=== PATIENT | male | born 1950 | race Caucasian/White ===

== ENCOUNTER → 2016-10-18 | Outpatient (CLI) | payer OTHER, MEDICARE ==
--- NOTE | 2016-10-18 08:24 | RAD ---
Exam: PA and lateral chest radiograph History: Chest congestion, shortness of air. Worsening over last 2 days. Comparison: None. Findings: Cardiomediastinal silhouette is within normal limits for size. Bilateral lung cook are free of focal infiltrate. No pleural effusion is seen. Impression: No acute cardiopulmonary process.
== END | disposition home or self-care (01) ==
LOC: DXRADRC 07:56
PROVIDERS: ATTEND Physician Assistant Medical
DX: R05 Cough (principal); R09.89 Other specified symptoms and signs involving the circulatory and respiratory systems
CPT/HCPCS: 71020

== ENCOUNTER 2019-10-18 21:17 | Emergency (ER) | payer MEDICARE, OTHER ==
[~2019-10-18] VITALS: Ht 167.6 cm; Wt 95.4 kg
[2019-10-18 21:24] VITALS: BP 172/68
--- NOTE | 2019-10-18 21:27 | PHYS DOC ---
Past History Past Medical History: Prostatitis General Adult EDM: Chief Complaint: URINARY FREQUENCY HPI: HPI: "..I got prostate cancer or it is enlarged.. I was at the Urology .. and they did a procedure... and I have not been able to pee since they did the procedure ..."" They said go to the Emergency room..."..and have you guys to just put a cath and drain my bladder..." Patient is a 69 year old male who presents with complaints of dysuria, and distended bladder. Patient had a UroLift procedure approximately 830 this morning. Procedure was by Dr.Angst- [facility]. Patient denies has not been able to urinate since the procedure. Patient's bladder is almost fully distended. Having significant discomfort. Patient is on antibiotics post UroLift procedure. Patient reportedly had prostate biopsies in July with minimal abnormal cells. Patient denies any history of recent travel outside [facility]. Patient denies any specific ill contacts. Patient denies any immune suppression. Patient placement of a Laws catheter with a leg bag. Initial straight cath resulted in more than significant 750 cc of urine with immediate relief of his bladder pain. Review of Systems: Review of Systems: Constitutional: Denies fever or chills Eyes: Denies change in visual acuity HENT: Denies nasal congestion or sore throat Respiratory: Denies cough or shortness of breath Cardiovascular: Denies chest pain or edema GI: Complains of bladder distention abdominal pain, nausea,. Denies vomiting, bloody stools or diarrhea : Complains of urinary retention and dysuria Musculoskeletal: Denies back pain or joint pain Integument: Denies rash Neurologic: Denies headache, focal weakness or sensory changes Endocrine: Denies polyuria or polydipsia Lymphatic: Denies swollen glands Psychiatric: Denies depression or anxiety Heart Score: Risk Factors: Risk Factors: DM, Current or recent (<one month) smoker, HTN, HLP, family history of CAD, obesity. Risk Scores: Score 0 - 3: 2.5% MACE over next 6 weeks - Discharge Home Score 4 - 6: 20.3% MACE over next 6 weeks - Admit for Clinical Observation Score 7 - 10: 72.7% MACE over next 6 weeks - Early Invasive Strategies Family History: Family History: Noncontributory to presentation Current Medications: Current Meds: See nursing for home meds Allergies: Allergies: Allergies Coded Allergies Type Severity Reaction Last Updated Verified codeine Allergy Intermediate 10/13/13 Yes Physical Exam: PE: Constitutional: inacute distress, non-toxic appearance. [] HENT: Normocephalic, atraumatic, bilateral external ears normal, oropharynx moist, no oral exudates, nose normal. [] Eyes: PERRLA, EOMI, conjunctiva normal, no discharge. [] Neck: Normal range of motion, no tenderness, supple, no stridor. [] Cardiovascular: Tachycardia heart rate regular rhythm, no murmur [] Lungs & Thorax: Bilateral breath sounds equal at apex auscultation [] Abdomen: Bowel sounds decreased , soft, bladder tenderness and distention, no masses, no pulsatile masses. [] Skin: Warm, dry, no erythema, no rash. [] Back: No tenderness, no CVA tenderness. [] Extremities: No tenderness, no cyanosis, no clubbing, ROM intact, no edema. [] Neurologic: Alert and oriented X 3, normal motor function, normal sensory function, no focal deficits noted. [] Psychologic: Affect anxious, judgement normal, mood normal. [] EKG: EKG: [] Radiology/Procedures: Radiology/Procedures: [] Course & Med Decision Making: Course & Med Decision Making Pertinent Labs and Imaging studies reviewed. (See chart for details) Patient elected to only have straight cath. Laws removed after approximately thousand cc out. Urine appeared to have no clots with minimal bloody discoloration.. Patient take meds as restricted. Patient to follow-up with urology as directed. Patient return if any concerns. Impression: 1. Acute urinary retention 2. History of UroLift procedure this morning at 0830 hr.s [] Dragon Disclaimer: Dragon Disclaimer: This electronic medical record was generated, in whole or in part, using a voice recognition dictation system. Departure Departure: Disposition: 01 HOME/RESIDENCE PRIOR TO ADM Condition: STABLE Referrals: JONATHON GIL (PCP) [place] Disclaimer This chart was dictated in whole or in part using Voice Recognition software in a busy, high-work load, and often noisy Emergency Department environment. It may contain unintended and wholly unrecognized errors or omissions. Dragon Disclaimer This chart was dictated in whole or in part using Voice Recognition software in a busy, high-work load, and often noisy Emergency Department environment. It may contain unintended and wholly unrecognized errors or omissions. SUPRIYA CUI MD Oct 18, 2019 21:27
[2019-10-18] MEDS ORDERED: MORPHINE SULFATE 10 MG/ML SYRINGE. SQ ONE (21:45)
[2019-10-18] MEDS ORDERED: MORPHINE SULFATE 10 MG/ML SYRINGE. ONE (21:45)
[2019-10-18 22:30] LABS: COLOR,URINE RED
[2019-10-18 22:42] LABS: BACTERIA,URINE FEW /HPF (0-FEW); RBC,URINE TNTC /HPF (0-2); SQUAMOUS EPITHELIAL CELL,UR OCC /LPF; WBC,URINE 0 /HPF (0-4)
[2019-10-18 22:44] LABS: CLARITY,URINE BLOODY
== END 2019-10-18 22:59 | disposition home or self-care (01) ==
LOC: ER 21:17
DX: R33.8 Other retention of urine (principal); N32.89 Other specified disorders of bladder; Z85.46 Personal history of malignant neoplasm of prostate; Z88.5 Allergy status to narcotic agent
CPT/HCPCS: 81001; 96372; 99283; J2270